=== PATIENT | female | born 1995 | race Caucasian/White ===

== ENCOUNTER 2016-04-12 17:53 | Emergency (ER) | payer OTHER ==
[~2016-04-12 17:53] MED LIST: MIRALAX
== END 2016-04-12 20:25 | disposition left against medical advice (07) ==
LOC: M ED 17:53
DX: M54.5 Low back pain (principal); Z53.29 Procedure and treatment not carried out because of patient's decision for other reasons

== ENCOUNTER 2016-06-27 09:12 | Emergency (ER) | payer OTHER ==
[~2016-06-27] VITALS: Ht 167.6 cm; Wt 89.8 kg
[2016-06-27] MEDS ORDERED: IBUP600T26 PO (09:20)
[2016-06-27] MEDS ORDERED: ZOLO100T PO (09:20)
[2016-06-27] MEDS ORDERED: ONDANSETRON 4MG/2ML VIAL (J2405) IV ONE (09:45)
[2016-06-27] MEDS ORDERED: ACETAMINOPHEN TAB 650MG DOSE (2X325MG) PO ONE (09:45)
[2016-06-27] MEDS ORDERED: NS 1,800 ML IV ONE (09:45)
[2016-06-27 10:03] LABS: BASO # 0.1 K/mm3 (0.0-0.2); BASO % 0.5 % (0.0-1.0); EOS # 0.1 K/mm3 (0.0-0.50); EOS % 0.4 % (0.0-3.0); LARGE UNSTAINED CELL # 0.2 K/mm3 (0.0-0.4); LYMPH % 6.1 % (24.0-44.0); MEAN CORPUSCULAR HGB CONC 34.7 g/dl (32.0-36.5); MEAN CORPUSCULAR VOLUME 92.4 fl (80.0-96.0); MONO # 0.5 K/mm3 (0.0-0.8); NEUTROPHILS # 14.4 K/mm3 (1.8-7.7); NEUTROPHILS % 89.1 % (36.0-66.0); PLATELET COUNT, AUTOMATED 279 k/mm3 (150-450); WHITE BLOOD COUNT 16.2 K/mm3 (4.0-10.0)
[2016-06-27 10:26] LABS: ANION GAP 8 MEQ/L (8-16); BLOOD UREA NITROGEN 7 MG/DL (7-18); CALCIUM LEVEL 8.9 MG/DL (8.5-10.1); CARBON DIOXIDE LEVEL 26 MEQ/L (21-32); CHLORIDE LEVEL 106 MEQ/L (98-107); GLUCOSE, FASTING 122 MG/DL (70-105); POTASSIUM SERUM 3.5 MEQ/L (3.5-5.1); SODIUM LEVEL 140 MEQ/L (136-145)
[2016-06-27 10:28] LABS: CONTROL LINE HCG INT CTR LINE PRESENT
[2016-06-27 12:38] VITALS: BP 117/65
[2016-06-27] MEDS ORDERED: TYLE325T5 PO (12:38)
[2016-06-27] MEDS ORDERED: MUCI600T34 PO (12:38)
== END 2016-06-27 12:48 | disposition home or self-care (01) ==
LOC: M ED 09:39
DX: J06.9 Acute upper respiratory infection, unspecified (principal); F41.9 Anxiety disorder, unspecified; F33.9 Major depressive disorder, recurrent, unspecified; Z79.899 Other long term (current) drug therapy
CPT/HCPCS: 80048; 84703; 85025; 87804; 87880; 96374; 99283; J2405

== ENCOUNTER → 2016-07-01 | Outpatient (CLI) | payer OTHER ==
[~2016-07-01] MED LIST changes: +IBUP600T26 PO; +MUCI600T34 PO; +TYLE325T5 PO; +ZOLO100T PO
[2016-07-01 09:11] LABS: BASO # 0.1 K/mm3 (0.0-0.2); BASO % 0.6 % (0.0-1.0); EOS # 0.2 K/mm3 (0.0-0.50); EOS % 2.1 % (0.0-3.0); LARGE UNSTAINED CELL # 0.3 K/mm3 (0.0-0.4); LARGE UNSTAINED CELL % 3.1 % (0.0-4.0); LYMPH # 2.2 K/mm3 (1.5-6.5); LYMPH % 24.6 % (24.0-44.0); MEAN CORPUSCULAR HEMOGLOBIN 32.8 pg (27.0-33.0); MEAN CORPUSCULAR HGB CONC 34.5 g/dl (32.0-36.5); MONO # 0.3 K/mm3 (0.0-0.8); MONO % 3.9 % (0.0-5.0); NEUTROPHILS # 5.9 K/mm3 (1.8-7.7); NEUTROPHILS % 65.8 % (36.0-66.0); PLATELET COUNT, AUTOMATED 422 k/mm3 (150-450); RED CELL DISTRIBUTION WIDTH 11.9 % (11.5-14.5); WHITE BLOOD COUNT 8.9 K/mm3 (4.0-10.0)
[2016-07-01 09:51] LABS: ALBUMIN 3.3 GM/DL (3.2-5.2); ALBUMIN/GLOBULIN RATIO 0.79 (1.00-1.93); ALKALINE PHOSPHATASE 46 U/L (45-117); ALT/SGPT 35 U/L (12-78); ANION GAP 11 MEQ/L (8-16); AST/SGOT 20 U/L (15-37); BILIRUBIN,TOTAL 0.4 MG/DL (0.2-1.0); BLOOD UREA NITROGEN 12 MG/DL (7-18); CARBON DIOXIDE LEVEL 29 MEQ/L (21-32); CHLORIDE LEVEL 101 MEQ/L (98-107); CREATININE FOR GFR 0.69 MG/DL (0.55-1.02); GLUCOSE, FASTING 95 MG/DL (70-105); POTASSIUM SERUM 3.5 MEQ/L (3.5-5.1); SODIUM LEVEL 141 MEQ/L (136-145); TOTAL PROTEIN 7.5 GM/DL (6.4-8.2)
--- NOTE | 2016-07-02 01:07 | REP ---
Clinical: Fever and chest pain. Technique: PA and lateral. Comparison: 07/02/2014. Findings: Atelectasis/infiltrate involving the basilar right upper lobe noted. Mediastinum and cardiac silhouette normal. No effusion. No pneumothorax. Skeletal structures intact. Impression: Basilar right upper lobe infiltrate/atelectasis. Follow-up to resolution. Signed by Fabricio Orr MD 07/02/2016 12:59 A
--- NOTE | 2016-07-02 03:20 | REP ---
Clinical: Secondary amenorrhea . Technique: Transabdominal pelvic ultrasound followed by transvaginal examination for better evaluation of the endometrium and adnexa with color Doppler evaluation of the ovaries. Findings: Bladder is unremarkable and measures 5.1 x 2.7 x 3.7 cm . Normal anteverted uterus measures 6.6 x 3.0 x 4.4 cm . The endometrial complex measures 7.0 mm thickness. No discrete uterine or endometrial abnormalities are appreciated. Few subcentimeter Nabothian cysts in the lower uterine segment. Bilateral ovaries are normal in appearance and vascularity without evidence for torsion. Right ovary measures 5.0 x 1.8 x 2.7 cm ; R I = 0.66 . Left ovary measures 4.1 x 2.2 x 3.4 cm ; R I = 0.60 . No pelvic fluid or adnexal mass lesion. Impression: 1. Essentially normal pelvic ultrasound as described above. Few subcentimeter Nabothian cysts in the lower uterine segment/cervical region. 2. Normal bilateral ovaries without torsion. 3. No pelvic fluid or adnexal mass lesion. Signed by Fabricio Orr MD 07/02/2016 03:11 A
== END ==
LOC: M LAB 08:19
PROVIDERS: ATTEND Nurse Practitioner Family
DX: N91.1 Secondary amenorrhea (principal); Z72.51 High risk heterosexual behavior; R50.9 Fever, unspecified

== ENCOUNTER → 2016-07-30 | Outpatient (CLI) | payer OTHER ==
[2016-07-30 16:23] LABS: FOLLICLE STIMULATING HORMONE 9.3 mIU/mL
== END ==
LOC: M LAB 15:21
PROVIDERS: ATTEND Internal Medicine Endocrinology, Diabetes & Metabolism
DX: E28.2 Polycystic ovarian syndrome (principal)

== ENCOUNTER → 2017-03-21 | Outpatient (REF) | payer OTHER ==
[2017-03-21 22:16] LABS: APPEARANCE, URINE CLEAR (CLEAR); BACTERIA, URINE AUTO NEGATIVE (NEGATIVE); BILIRUBIN, URINE AUTO NEGATIVE (NEGATIVE); BLOOD, URINE BLOOD 1+ (NEGATIVE); COLOR, URINE YELLOW (YELLOW); GLUCOSE, URINE (UA) AUTO NEGATIVE (NEGATIVE); KETONE, URINE AUTO NEGATIVE (NEGATIVE); LEUKOCYTE ESTERASE, URINE AUTO 1+ (NEGATIVE); MUCUS, URINE SMALL (NEGATIVE); NITRITE, URINE AUTO NEGATIVE (NEGATIVE); PROTEIN, URINE AUTO NEGATIVE (NEGATIVE); RBC, URINE AUTO 0 /HPF (0-3); SPECIFIC GRAVITY URINE AUTO 1.018 (1.002-1.035); SQUAMOUS EPITHELIAL CELL UR AU 2 /HPF (0-6); UROBILINOGEN, URINE AUTO 0.2 mg/dL (0.0-2.0); WBC, URINE AUTO 0 /HPF (0-3)
== END ==
LOC: M LAB REF 10:25
DX: R10.9 Unspecified abdominal pain (principal)

== ENCOUNTER → 2017-06-19 | Outpatient (REF) | payer OTHER | LOC: M LAB REF 12:45 | DX: J02.9 Acute pharyngitis, unspecified (principal) ==

== ENCOUNTER 2017-11-04 19:56 | Emergency (ER) | payer OTHER ==
[2017-11-04] MEDS: CYCLOBENZAPRINE 10 MG TAB PO (22:45)
[2017-11-04] MEDS: NAPROXEN 250 MG TAB PO (22:49)
== END 2017-11-04 22:57 | disposition home or self-care (01) ==
LOC: M ED 19:56
DX: S39.012A Strain of muscle, fascia and tendon of lower back, initial encounter (principal); M62.830 Muscle spasm of back; X50.1XXA Overexertion from prolonged static or awkward postures, initial encounter; Y92.89 Other specified places as the place of occurrence of the external cause; M54.9 Dorsalgia, unspecified; G89.29 Other chronic pain
CPT/HCPCS: 99283

== ENCOUNTER 2017-12-21 12:19 | Emergency (ER) | payer OTHER ==
[2017-12-21 13:36] LABS: KETONE, URINE AUTO RFX TRACE mg/dL (NEGATIVE); MUCUS, URINE RFX SMALL (NEGATIVE); NITRITE, URINE AUTO RFX NEGATIVE (NEGATIVE); RBC, URINE AUTO RFX 1 /HPF (0-3); SPECIFIC GRAVITY UR AUTO RFX 1.028 (1.002-1.035); SQUAM EPITHELIAL CELL UR AURFX 2 /HPF (0-6); WBC, URINE AUTO RFX 1 /HPF (0-3)
[2017-12-21 13:37] LABS: LEUKOCYTE ESTERASE UR AUTO RFX 1+ (NEGATIVE)
[2017-12-21] MEDS: NS 1,000 ML IV (15:55)
[2017-12-21] MEDS: ACETAMINOPHEN TAB 650MG DOSE (2X325MG) PO (15:57)
[2017-12-21 16:02] LABS: BASO # 0.1 10^3/uL (0.0-0.2); BASO % 0.4 % (0.0-1.0); EOS % 0.2 % (0.0-3.0); HEMATOCRIT 39.7 % (36.0-47.0); HEMOGLOBIN 14.4 g/dl (12.0-15.5); IMMATURE GRANULOCYTE % 0.5 % (0-3.0); LYMPH # 2.6 10^3/uL (1.5-6.5); LYMPH % 15.4 % (24.0-44.0); MEAN CORPUSCULAR HEMOGLOBIN 33.4 pg (27.0-33.0); MEAN CORPUSCULAR HGB CONC 36.3 g/dl (32.0-36.5); MEAN CORPUSCULAR VOLUME 92.1 fl (80.0-96.0); MONO # 0.7 10^3/uL (0.0-0.8); MONO % 4.3 % (0.0-5.0); NEUTROPHILS # 13.3 10^3/uL (1.8-7.7); NEUTROPHILS % 79.2 % (36.0-66.0); PLATELET COUNT, AUTOMATED 361 10^3/uL (150-450); RED BLOOD COUNT 4.31 10^6/uL (4.00-5.40); RED CELL DISTRIBUTION WIDTH 12.2 % (11.5-14.5); WHITE BLOOD COUNT 16.8 10^3/uL (4.0-10.0)
[2017-12-21 16:57] LABS: HCG, SERUM QUANTITATIVE 52826 MIU/ML
== END 2017-12-21 17:28 | disposition home or self-care (01) ==
LOC: M ED 12:19
DX: O23.11 Infections of bladder in pregnancy, first trimester (principal); O99.341 Other mental disorders complicating pregnancy, first trimester; Z3A.01 Less than 8 weeks gestation of pregnancy
CPT/HCPCS: 76801

== ENCOUNTER → 2018-01-26 | Outpatient (CLI) | payer OTHER ==
[2018-01-26 18:16] LABS: GLUCOSE CHALLENGE TEST 1 HOUR 88 MG/DL (LESS THAN 140)
[2018-01-26 18:20] LABS: BASO # 0.1 10^3/uL (0.0-0.2); BASO % 0.4 % (0.0-1.0); EOS # 0.2 10^3/uL (0.0-0.50); EOS % 1.5 % (0.0-3.0); HEMATOCRIT 36.9 % (36.0-47.0); HEMOGLOBIN 12.7 g/dl (12.0-15.5); IMMATURE GRANULOCYTE % 0.4 % (0-3.0); LYMPH # 2.4 10^3/uL (1.5-6.5); LYMPH % 17.7 % (24.0-44.0); MEAN CORPUSCULAR HEMOGLOBIN 32.6 pg (27.0-33.0); MEAN CORPUSCULAR HGB CONC 34.4 g/dl (32.0-36.5); MEAN CORPUSCULAR VOLUME 94.9 fl (80.0-96.0); MONO # 0.7 10^3/uL (0.0-0.8); MONO % 4.7 % (0.0-5.0); NEUTROPHILS # 10.4 10^3/uL (1.8-7.7); NEUTROPHILS % 75.3 % (36.0-66.0); PLATELET COUNT, AUTOMATED 339 10^3/uL (150-450); RED BLOOD COUNT 3.89 10^6/uL (4.00-5.40); WHITE BLOOD COUNT 13.8 10^3/uL (4.0-10.0)
[2018-01-26 18:47] LABS: ESTIMATED AVERAGE GLUCOSE 82 MG/DL (60-110); HEMOGLOBIN A1c 4.5 %
[2018-01-26 20:10] LABS: CHLAMYDIA DNA AMPLIFICATION NEGATIVE (NEGATIVE); GC DNA AMPLIFICATION NEGATIVE (NEGATIVE)
[2018-01-27 11:01] LABS: RUBELLA IgG QUALITATIVE IMMUNE (IMMUNE)
[2018-01-27 11:02] LABS: HBsAg Prenatal NEGATIVE (NEGATIVE)
[2018-01-27 11:30] LABS: HIV 1&2 SCREEN CENTAUR NEGATIVE (NEGATIVE)
[2018-01-27 11:30] LABS: HEPATITIS C VIRUS ABY INDEX 0.1 INDEX (<0.8)
== END ==
LOC: M SMT 13:46
DX: Z34.81 Encounter for supervision of other normal pregnancy, first trimester (principal); Z3A.12 12 weeks gestation of pregnancy
CPT/HCPCS: 82950

== ENCOUNTER → 2018-03-10 | Outpatient (CLI) | payer MEDICAID, SELFPAY ==
[~2018-03-10] MED LIST changes: +BACT800T5 PO; +CIPR-249 PO; +CYCL10TA PO; +IBUP-1022 PO; -IBUP600T26 PO; +MACR100C43 PO; -MUCI600T34 PO; +MUCI600T37 PO; +NAPR-50 PO; +PERCOCET PO; +PYRI1TAB5 PO
--- NOTE | 2018-03-10 09:31 | REP ---
OBSTETRIC SONOGRAPHY: HISTORY: Supervision of for anatomy. FINDINGS: Scanning through the gravid uterus demonstrates a viable single intrauterine gestation in a cephalic lie. motion is observed and heart rate is recorded at 144 beats per minute. An anterior grade 0 placenta is seen without evidence of previa or abruption. Amniotic fluid is subjectively normal. Closed cervical length is 4.3 cm. No extrauterine abnormality is observed. There has been appropriate interval growth. No anomaly is seen. The following anatomic structures are less than optimally seen due to position: face and profile, left and right ventricular cardiac outflow tract views. The following additional anatomic structures are identified and felt to be sonographically unremarkable: cranium, choroid plexus, cavum, cerebellum posterior fossa, nuchal fold, lungs, four-chamber heart, diaphragm, left-sided stomach, abdominal wall cord insertion, three-vessel umbilical cord, kidneys and bladder, spine, upper and lower extremities. Biometry Chart: BPD 4.0 cm = 18 weeks 1 day HC 14.6 cm = 17 weeks 5 days AC 12.0 cm = 17 weeks 5 days FL 2.6 cm = 17 weeks 6 days HL 2.6 cm = 18 weeks 2 days CD 1.7 cm = 17 weeks 1 day HC/AC ratio normal 1.22. Cephalic index normal 0.77. Estimated weight 210 grams, 0 pounds 7 ounces, 22nd percentile for 18 weeks 3 days. IMPRESSION: Viable single intrauterine gestation at 17 weeks 6 days by today's composite sonographic criteria. Expected gestational age estimate based on prior sonography is 18 weeks 3 days. SADI by prior sonography August 08, 2018. The left and right ventricular outflow tract views and face visualization are less than optimally achieved today. Electronically Signed by Joshua Ruff MD 03/10/2018 10:21 A
== END ==
LOC: M RAD 07:43
PROVIDERS: ATTEND Advanced Practice Midwife
DX: Z36.89 Encounter for other specified antenatal screening (principal); Z3A.17 17 weeks gestation of pregnancy

== ENCOUNTER → 2018-04-03 | Outpatient (CLI) | payer MEDICAID ==
--- NOTE | 2018-04-03 15:08 | REP ---
OB ULTRASOUND: Real-time sonographic evaluation of the gravid uterus is performed. There is a single living intrauterine gestation. Estimated gestational age 21 weeks 6 days, EDC 08/08/2018. Today's measurements indicate appropriate growth. BPD 50 mm = 21 weeks 1 day, 29th percentile HC 186 mm = 21 weeks 0 days, 20th percentile AC 175 mm = 22 weeks 2 days, 61st percentile Femur length 39 mm = 22 weeks 4 days, 65th percentile HC/AC ratio 1.06 within normal range. Estimated weight 489 grams, 57th percentile. Cervix is closed and measures 2.9 cm in length. heart rate 147 beats per minute. SEEN/GROSSLY UNREMARKABLE Lateral ventricles Yes Posterior fossa Yes Upper lip Yes Four-chamber heart Yes LVOT Yes RVOT Yes Stomach Yes Cord insertion Yes Three vessel cord Yes Kidneys No Bladder Yes Spine No position: Breech. Placenta: Anterior and grade 1 with no previa or abruption. Amniotic fluid: Within normal limits. Electronically Signed by Kristofer Saldana MD 04/03/2018 07:58 P
== END ==
LOC: M RAD 10:25
PROVIDERS: ATTEND Advanced Practice Midwife
DX: Z34.82 Encounter for supervision of other normal pregnancy, second trimester (principal)

== ENCOUNTER 2018-04-06 10:05 | Emergency (ER) | payer MEDICAID, OTHER ==
[~2018-04-06] VITALS: Ht 165.1 cm; Wt 94.5 kg
[2018-04-06] MEDS ORDERED: ACET160S5 PO (10:12)
[2018-04-06] MEDS ORDERED: [UNRECOGNIZED DRUG - REMARK] (10:12)
[2018-04-06] MEDS ORDERED: METOCLOPRAMIDE INJ 10MG/2ML VIAL (J2765) IV ONE (11:45)
[2018-04-06] MEDS ORDERED: NS 1,000 ML IV ONE (11:45)
[2018-04-06 12:04] LABS: BASO # 0.1 10^3/uL (0.0-0.2); BASO % 0.4 % (0.0-1.0); EOS # 0.1 10^3/uL (0.0-0.50); EOS % 0.5 % (0.0-3.0); HEMATOCRIT 34.6 % (36.0-47.0); HEMOGLOBIN 12.1 g/dl (12.0-15.5); LYMPH # 2.3 10^3/uL (1.5-6.5); MEAN CORPUSCULAR HEMOGLOBIN 32.9 pg (27.0-33.0); MONO # 0.6 10^3/uL (0.0-0.8); MONO % 3.5 % (0.0-5.0); NEUTROPHILS # 14.2 10^3/uL (1.8-7.7); NEUTROPHILS % 81.8 % (36.0-66.0); PLATELET COUNT, AUTOMATED 310 10^3/uL (150-450); RED BLOOD COUNT 3.68 10^6/uL (4.00-5.40); WHITE BLOOD COUNT 17.3 10^3/uL (4.0-10.0)
[2018-04-06] MEDS ORDERED: FIORICET TAB PO ONE (12:15)
[2018-04-06 12:34] LABS: BLOOD UREA NITROGEN 6 MG/DL (7-18); CARBON DIOXIDE LEVEL 23 MEQ/L (21-32); CHLORIDE LEVEL 106 MEQ/L (98-107); CREATININE FOR GFR 0.53 MG/DL (0.55-1.30); GLOMERULAR FILTRATION RATE > 60.0 (>60); GLUCOSE, FASTING 92 MG/DL (70-100); POTASSIUM SERUM 3.6 MEQ/L (3.5-5.1); SODIUM LEVEL 137 MEQ/L (136-145)
[2018-04-06] MEDS ORDERED: ONDA4TAB6 PO (13:46)
[2018-04-06 14:08] VITALS: BP 122/57
== END 2018-04-06 14:09 | disposition home or self-care (01) ==
LOC: M ED 10:05
DX: O99.89 Other specified diseases and conditions complicating pregnancy, childbirth and the puerperium (principal); R51 Headache; O99.112 Other diseases of the blood and blood-forming organs and certain disorders involving the immune mechanism complicating pregnancy, second trimester
CPT/HCPCS: 80048; 81001; 85025; 96361; 96374; 99284; J2765

== ENCOUNTER 2018-04-11 17:01 | Emergency (ER) | payer MEDICAID ==
[~2018-04-11] VITALS: Ht 165.1 cm; Wt 92.7 kg
[~2018-04-11 17:01] MED LIST changes: +ACET160S5 PO; +ONDA4TAB6 PO; +[UNRECOGNIZED DRUG - REMARK]
[2018-04-11] MEDS ORDERED: ONDANSETRON 4 MG ORAL DISINTEGRATING TAB (Q0162 PER 1MG) PO ONE (18:30)
[2018-04-11 19:02] LABS: INFLUENZA A AMPLIFICATION NEGATIVE (NEGATIVE); INFLUENZA B AMPLIFICATION NEGATIVE (NEGATIVE)
[2018-04-11] MEDS ORDERED: METOCLOPRAMIDE 10 MG TAB PO ONE ×2 (19:15→20:15)
[2018-04-11 20:06] VITALS: BP 130/67
[2018-04-11] MEDS ORDERED: REGL10TA6 PO (20:06)
== END 2018-04-11 20:14 | disposition home or self-care (01) ==
LOC: M ED 17:01
DX: R05 Cough (principal); R09.81 Nasal congestion; O21.9 Vomiting of pregnancy, unspecified
CPT/HCPCS: 87502; 99283; Q0162

== ENCOUNTER → 2018-05-19 | Outpatient (CLI) | payer MEDICAID ==
[~2018-05-19] MED LIST changes: +REGL10TA6 PO
[2018-05-19 18:41] LABS: HEMATOCRIT 34.4 % (36.0-47.0); HEMOGLOBIN 11.4 g/dl (12.0-15.5); MEAN CORPUSCULAR HGB CONC 33.1 g/dl (32.0-36.5); MEAN CORPUSCULAR VOLUME 96.6 fl (80.0-96.0); PLATELET COUNT, AUTOMATED 333 10^3/uL (150-450); RED BLOOD COUNT 3.56 10^6/uL (4.00-5.40); WHITE BLOOD COUNT 15.7 10^3/uL (4.0-10.0)
== END ==
LOC: M SMT 13:51
PROVIDERS: ATTEND Advanced Practice Midwife
DX: O99.89 Other specified diseases and conditions complicating pregnancy, childbirth and the puerperium (principal); Z3A.24 24 weeks gestation of pregnancy

== ENCOUNTER → 2018-07-14 | Outpatient (CLI) | payer MEDICAID ==
[~2018-07-14] MED LIST changes: -ACET160S5 PO; -NAPR-50 PO; +NAPR-837 PO; +TGTSUS3 PO
== END ==
LOC: M SMT 13:45
PROVIDERS: ATTEND Advanced Practice Midwife
DX: Z36.89 Encounter for other specified antenatal screening (principal)

== ENCOUNTER → 2018-07-14 | Outpatient (REF) | payer OTHER, MEDICAID | LOC: M LAB REF 17:20 | PROVIDERS: ATTEND Advanced Practice Midwife | DX: Z34.03 Encounter for supervision of normal first pregnancy, third trimester (principal); Z3A.00 Weeks of gestation of pregnancy not specified ==

== ENCOUNTER 2018-07-27 01:12 | Outpatient (CLI) | payer OTHER, MEDICAID ==
[~2018-07-27] VITALS: Ht 167.6 cm; Wt 105.6 kg
[2018-07-27 01:29] VITALS: BP 130/76
[2018-07-27] MEDS ORDERED: PRENTAB9 PO (01:36)
[2018-07-27 03:01] VITALS: BP 129/75
--- NOTE | 2018-07-27 16:27 | NUR ---
L&D Triage Note: S: 22yo g1 at 38w2d presents with c/o crease movement. Denies vaginal bleeding, LOF or ctx. O: vss AF cat 1 tracing with prolong monitoring. 2-3 variable decelerations. positive contractions on tocometer gen: well appearing abd: gravid, nttp cx: closed TAUS: ceph, active fetus, DANIELA: >16cm A/P: 22yo G1 at 38w2d with reassuring status -home with labor precautions and FKCs instructions -f/u at next OB appt Katherine Matos MD
== END 2018-07-27 03:00 | disposition home or self-care (01) ==
LOC: M LDO 01:12
PROVIDERS: ATTEND Obstetrics & Gynecology
DX: O36.8130 Decreased fetal movements, third trimester, not applicable or unspecified (principal); O47.1 False labor at or after 37 completed weeks of gestation; Z3A.38 38 weeks gestation of pregnancy

== ENCOUNTER 2018-08-11 03:00 | Inpatient (IN) | payer OTHER, MEDICAID ==
[2018-08-11] VITALS (7 sets, daily range): BP systolic 120–148; BP diastolic 56–80
[~2018-08-11] VITALS: Ht 167.6 cm; Wt 110.3 kg
[~2018-08-11 03:00] MED LIST changes: +PRENTAB9 PO
[2018-08-11 04:16] LABS: HEMATOCRIT 36.8 % (36.0-47.0); HEMOGLOBIN 12.9 g/dl (12.0-15.5); MEAN CORPUSCULAR HEMOGLOBIN 33.2 pg (27.0-33.0); MEAN CORPUSCULAR HGB CONC 35.1 g/dl (32.0-36.5); MEAN CORPUSCULAR VOLUME 94.6 fl (80.0-96.0); PLATELET COUNT, AUTOMATED 321 10^3/uL (150-450); RED BLOOD COUNT 3.89 10^6/uL (4.00-5.40); WHITE BLOOD COUNT 20.2 10^3/uL (4.0-10.0)
[2018-08-11] MEDS ORDERED: FENTANYL 2MCG/ML ROPIVACAINE 0.2% IN 0.9% NACL 100ML IVBAG As Ordered ONE (05:02)
[2018-08-11] MEDS ORDERED: OXYTOCIN 30 UNITS IN 0.9% NaCl 500ML IV BAG (J2590) As Ordered ONE (05:32)
[2018-08-11] MEDS ORDERED: OXYTOCIN DRIP 30 UNITS in APPROPRIATE DILUENT 1 EA IV SCH (06:53)
[2018-08-11] MEDS ORDERED: MOM 30ML SUSPENSION UDC PO PRN (07:00)
[2018-08-11] MEDS ORDERED: LIDOCAINE 1% MDV 20ML VIAL INFIL ONE (07:00)
[2018-08-11] MEDS ORDERED: ANUSOL HC CREAM 30GM TOP PRN (07:00)
[2018-08-11] MEDS ORDERED: RHOGAM 300 MCG (1500 IU) INJ (J2790) IM SCH (07:00)
[2018-08-11] MEDS ORDERED: ACETAMINOPHEN TAB 650MG DOSE (2X325MG) PO PRN (07:00)
[2018-08-11] MEDS ORDERED: DOCUSATE SODIUM 100 MG CAP PO PRN (07:00)
[2018-08-11] MEDS ORDERED: METHYLERGONOVINE MALEATE 0.2 MG TAB PO PRN (07:00)
[2018-08-11] MEDS ORDERED: DIBUCAINE 1% OINTMENT 30GM TOP PRN (07:00)
[2018-08-11] MEDS ORDERED: ACETAMINOPHEN 500 MG TAB PO PRN (07:00)
[2018-08-11] MEDS ORDERED: IBUPROFEN 600 MG TAB PO PRN (07:00)
[2018-08-11] MEDS ORDERED: MEASLES,MUMPS,RUBELLA VACCINE INJ (MMR-II) (90707) SC SCH (07:00)
--- NOTE | 2018-08-11 07:11 | DN ---
DATE OF DELIVERY: 08/11/2018 TIME OF : 0553 GENDER: Male. APGARS: 8 and 9. WEIGHT: 6 pounds 11 ounces or 3000 grams. LACERATION: Right labial laceration. ESTIMATED BLOOD LOSS: 300 mL. ANESTHESIA: None. COUNTS: 5 laparotomy sponges accounted for prior to and after delivery, 2 sharps removed from delivery field. DELIVERY NOTE: 08/11/2018, at 0553, Ms. Louise, a 23-year-old, 1, now para 1 had a spontaneous vaginal delivery of a live born male infant, Apgars 8 and 9, weight 6 pounds 11 ounces or 3000 grams. Head was delivered occiput anterior (OA) over intact perineum followed by delivery of shoulders and corpus. was handed to mom with a good cry. Cord was then clamped times two and was cut by the father of the baby. The placenta was then drained and delivered grossly intact. A premixed bag of 500 mL of normal saline with 30 units Pitocin was then bolused until the uterus was firm. On inspection, there was a right labial laceration which was infused with 1% lidocaine and then repaired with #3-0 Vicryl Rapide. On reinspection, cervix, vagina and perineum were grossly intact and hemostatic. Mom and baby recovering in stable condition. The couple has decided to name their son, Lawrence.
--- NOTE | 2018-08-11 07:12 | HPE ---
DATE OF ADMISSION: 08/11/2018 REASON FOR ADMISSION: Labor. HISTORY OF PRESENT ILLNESS: Ms Louise is a 23-year-old, 1 who presents at 40 weeks 3 days estimated gestational age by her first trimester ultrasound here with complaints of labor. She reports contractions that began earlier this morning that have increased in intensity and frequency. She reports active movements. Does report leakage of fluid, which was clear approximately at 3:30. Denies any vaginal bleeding. Her course is unremarkable. She initiated care in her first trimester and has been appropriate throughout. PAST MEDICAL HISTORY: None. PAST SURGICAL HISTORY: She has had appendectomy and hernia repair. OBSTETRICAL HISTORY: She is a 1. MEDICATIONS: Includes vitamins. ALLERGIES: She has no known drug allergies. PHYSICAL EXAMINATION: VITAL SIGNS: Stable. She is afebrile. She has a category 1 rate tracing. GENERAL APPEARANCE: Well appearing, no acute distress. The cervical exam: She was 4 cm dilated, grossly ruptured. LABS: Her blood type is O+, antibody screen is negative. Rubella is immune. RPR is nonreactive. Hepatitis surface antigen is negative. HIV is negative. Hepatitis C is nonreactive. Chlamydia, gonorrhea screens negative. She had a normal 1-hour Glucola and she is GBS negative. ASSESSMENT: 1. This patient is a 23-year-old 1 at 40 weeks 3 days estimated gestational age with spontaneous rupture of membranes. 2. Reassuring status. PLAN: 1. Admit to labor and delivery. CBC, RPR, type and screen. 2. Anticipate spontaneous vaginal delivery.
[2018-08-11] MEDS: PRENATAL VITAMINS CHEWABLE TABLET PO SCH (11:19)
[2018-08-12 06:00] VITALS: BP 132/65
[2018-08-12] MEDS: PRENATAL VITAMINS CHEWABLE TABLET PO SCH (07:36)
[2018-08-12] MEDS: IBUPROFEN 800 MG TAB PO PRN ×2 (07:37→18:01)
[2018-08-12 18:07] VITALS: BP 131/65
[2018-08-13 06:00] VITALS: BP 128/72
[2018-08-13] MEDS: PRENATAL VITAMINS CHEWABLE TABLET PO SCH (08:05)
[2018-08-13] MEDS: IBUPROFEN 800 MG TAB PO PRN (08:06)
[2018-08-13] MEDS ORDERED: ACET-683 PO (08:59)
[2018-08-13] MEDS ORDERED: IBUP80TA PO (08:59)
== END 2018-08-13 11:00 | disposition home or self-care (01) | DRG 560 ==
LOC: M LDO 03:00 → M LDI 03:31 → M OBS 08:46
PROVIDERS: ADMIT Obstetrics & Gynecology; ATTEND Obstetrics & Gynecology
PROC: 10E0XZZ Delivery of Products of Conception, External Approach (ICD-10-PCS; principal; 2018-08-11)
PROC: 0HQ9XZZ Repair Perineum Skin, External Approach (ICD-10-PCS; 2018-08-11)
DX: O48.0 Post-term pregnancy (principal); O70.0 First degree perineal laceration during delivery; Z3A.40 40 weeks gestation of pregnancy; Z37.0 Single live birth

== ENCOUNTER → 2018-10-26 | Outpatient (CLI) | payer OTHER, MEDICAID ==
[~2018-10-26] MED LIST changes: +ACET-683 PO; +IBUP80TA PO
[2018-10-26 17:18] LABS: FREE T4 0.96 NG/DL (0.76-1.46); THYROID STIMULATING HORMONE 0.638 uIU/ML (0.358-3.740); TOTAL 25(OH) VITAMIN D 22.5 NG/ML (30.0-100.0)
== END ==
LOC: M SMT 11:25
PROVIDERS: ATTEND Advanced Practice Midwife
DX: F53.0 Postpartum depression (principal)

== ENCOUNTER → 2019-01-10 | Outpatient (CLI) | payer OTHER | LOC: M SMT 10:08 | PROVIDERS: ATTEND Obstetrics & Gynecology | DX: Z12.4 Encounter for screening for malignant neoplasm of cervix (principal); B37.3 Candidiasis of vulva and vagina ==

== ENCOUNTER → 2020-12-22 | Outpatient (CLI) | payer OTHER ==
[~2020-12-22] MED LIST changes: +ACET-1439 PO; +CYCL-707 PO; -CYCL10TA PO; -TGTSUS3 PO
--- NOTE | 2020-12-23 09:35 | REP ---
INDICATION: GESTATIONAL DATING. COMPARISON: None. TECHNIQUE: Real-time sonographic evaluation of the gravid uterus performed. FINDINGS: Estimated gestational age is20 weeks 1 day, EDC 05/10/2021. Today's measurements indicate appropriate growth. Presentation: Transverse Placenta anterior, grade 0, without evidence of placenta previa. heart rate is recorded at 135 beats per minute. Amniotic fluid is subjectively normal. Closed cervical length is measured at 3.7 cm. Biometry chart: BPD: 46 mm, 20 weeks 0 days, 47th percentile. HC: 174 mm, 20 weeks 0 days, 45th percentile AC: 145 mm, 19 weeks 6 days, 44th percentile Femur length: 33 mm, 20 weeks 3 days, 59th percentile HC to AC ratio: 1.20, normal range 1.06-1.24. Estimated weight: 332g, 44th percentile. anatomy: Cranium: Grossly normal Lateral Ventricles/Choroid Plexus: Grossly normal Posterior Fossa/Cerebellum: Grossly normal Nose/lips/profile: Not well seen due to position Four chamber heart: Grossly normal Right ventricular outflow tract: Grossly normal Left ventricular outflow tract: Grossly normal Left-sided stomach: Grossly normal Kidneys: Not well seen due to position Bladder: Grossly normal Cord Insertion: Grossly normal 3 vessel cord: Grossly normal Spine: Well seen due to position IMPRESSION: Viable single intrauterine gestation as above. <Electronically signed by Kristofer Saldana > 12/23/20 0914
== END ==
LOC: M RAD 15:28
PROVIDERS: ATTEND Physician Assistant Medical
DX: Z36.87 Encounter for antenatal screening for uncertain dates (principal); Z32.01 Encounter for pregnancy test, result positive; Z3A.20 20 weeks gestation of pregnancy

== ENCOUNTER → 2021-01-05 | Outpatient (REF) | payer OTHER ==
[2021-01-05 12:16] LABS: HEMATOCRIT 34.2 % (36.0-47.0); HEMOGLOBIN 11.9 g/dl (12.0-15.5); MEAN CORPUSCULAR HEMOGLOBIN 32.7 pg (27.0-33.0); MEAN CORPUSCULAR HGB CONC 34.8 g/dl (32.0-36.5); PLATELET COUNT, AUTOMATED 307 10^3/uL (150-450); RED BLOOD COUNT 3.64 10^6/uL (4.00-5.40)
[2021-01-05 13:30] LABS: HCG, SERUM QUANTITATIVE 3108 MIU/ML; HEPATITIS B SURFACE ANTIGEN NEGATIVE (NEGATIVE); HEPATITIS C VIRUS ABY INDEX 0.1 INDEX (<0.8); HIV 1&2 SCREEN CENTAUR NEGATIVE (NEGATIVE)
== END ==
LOC: M LAB REF 11:30
PROVIDERS: ATTEND Advanced Practice Midwife
DX: Z34.81 Encounter for supervision of other normal pregnancy, first trimester (principal); Z3A.00 Weeks of gestation of pregnancy not specified

== ENCOUNTER → 2021-01-26 | Outpatient (CLI) | payer OTHER | LOC: M RAD 11:48 | PROVIDERS: ATTEND Advanced Practice Midwife | DX: Z36.9 Encounter for antenatal screening, unspecified (principal); Z3A.25 25 weeks gestation of pregnancy ==

== ENCOUNTER → 2021-02-16 | Outpatient (CLI) | payer OTHER ==
[2021-02-16 12:21] LABS: BASO # 0.1 10^3/uL (0.0-0.2); BASO % 0.4 % (0.0-1.0); EOS # 0.2 10^3/uL (0.0-0.5); EOS % 1.3 % (0.0-3.0); HEMATOCRIT 34.6 % (36.0-47.0); HEMOGLOBIN 11.9 g/dl (12.0-15.5); LYMPH # 2.3 10^3/uL (1.5-5.0); LYMPH % 16.4 % (24.0-44.0); MEAN CORPUSCULAR HGB CONC 34.4 g/dl (32.0-36.5); MEAN CORPUSCULAR VOLUME 95.8 fl (80.0-96.0); MONO # 0.6 10^3/uL (0.0-0.8); MONO % 4.2 % (2.0-8.0); NEUTROPHILS # 10.9 10^3/uL (1.5-8.5); NEUTROPHILS % 77.1 % (36.0-66.0); PLATELET COUNT, AUTOMATED 278 10^3/uL (150-450); RED BLOOD COUNT 3.61 10^6/uL (4.00-5.40); WHITE BLOOD COUNT 14.2 10^3/uL (4.0-10.0)
== END ==
LOC: M LAB 10:11
PROVIDERS: ATTEND Advanced Practice Midwife
DX: Z36.89 Encounter for other specified antenatal screening (principal); Z3A.00 Weeks of gestation of pregnancy not specified

== ENCOUNTER → 2021-03-17 | Outpatient (REF) | payer OTHER ==
[2021-03-17 13:42] LABS: TOTAL PROTEIN,RANDOM URINE 28.4 MG/DL (0.0-12.0)
== END ==
LOC: M LAB REF 12:20
PROVIDERS: ATTEND Advanced Practice Midwife
DX: Z36.9 Encounter for antenatal screening, unspecified (principal); O12.13 Gestational proteinuria, third trimester

== ENCOUNTER → 2021-04-14 | Outpatient (REF) | payer OTHER | LOC: M LAB REF 16:29 | PROVIDERS: ATTEND Obstetrics & Gynecology | DX: Z36.9 Encounter for antenatal screening, unspecified (principal); Z3A.00 Weeks of gestation of pregnancy not specified ==

== ENCOUNTER 2021-05-09 23:21 | Inpatient (IN) | payer OTHER ==
[~2021-05-09] VITALS: Ht 167.6 cm; Wt 105.0 kg
[2021-05-09] MEDS ORDERED: RHOGAM 300 MCG (1500 IU) INJ (J2790) IM SCH (23:45)
[2021-05-09] MEDS ORDERED: HOME MED LIST COMPLETE! XX SCH (23:45)
[2021-05-09] MEDS ORDERED: TRANEXAMIC ACID INJection 1,000 MG in NS 100 ML IV PRN (23:45)
[2021-05-09] MEDS ORDERED: METHYLERGONOVINE MALEATE 0.2 MG/ML VIAL (J2210) IM PRN (23:45)
[2021-05-09] MEDS ORDERED: ACETAMINOPHEN TAB 650MG DOSE (2X325MG) PO PRN (23:45)
[2021-05-09] MEDS ORDERED: METHYLERGONOVINE MALEATE 0.2 MG TAB PO PRN (23:45)
[2021-05-09] MEDS ORDERED: IBUPROFEN 600MG TAB PO PRN (23:45)
[2021-05-09] MEDS ORDERED: MEASLES,MUMPS,RUBELLA VACCINE INJ (MMR-II) (90707) SC SCH (23:45)
[2021-05-09] MEDS ORDERED: OXYTOCIN INJ 10 UNITS/ML VIAL (J2590) IM PRN (23:45)
[2021-05-09] MEDS ORDERED: CARBOPROST TROMETHAMINE 250 MCG/ML AMP IM PRN (23:45)
[2021-05-09] MEDS ORDERED: ACETAMINOPHEN 500 MG TAB PO PRN (23:45)
[2021-05-09] MEDS ORDERED: DOCUSATE SODIUM 100MG CAPSULE PO PRN (23:45)
[2021-05-09] MEDS ORDERED: DIBUCAINE 1% OINTMENT 30GM TOP PRN (23:45)
[2021-05-09] MEDS ORDERED: IBUPROFEN 800 MG TAB PO PRN (23:45)
[2021-05-09] MEDS ORDERED: OXYTOCIN INJ 10 UNITS/ML VIAL (J2590) As Ordered ONE (23:52)
[2021-05-10] VITALS (12 sets, daily range): BP systolic 110–148; BP diastolic 58–90
[2021-05-10] MEDS ORDERED: OXYTOCIN 30 UNITS IN 0.9% NaCl 500ML IV BAG (J2590) As Ordered ONE (00:07)
[2021-05-10] MEDS ORDERED: OXYTOCIN DRIP 30 UNITS in IV 1 EA IV STA (00:11)
[2021-05-10 00:29] LABS: HEMATOCRIT 36.8 % (36.0-47.0); HEMOGLOBIN 13.1 g/dl (12.0-15.5); MEAN CORPUSCULAR HEMOGLOBIN 32.5 pg (27.0-33.0); MEAN CORPUSCULAR HGB CONC 35.6 g/dl (32.0-36.5); MEAN CORPUSCULAR VOLUME 91.3 fl (80.0-96.0); PLATELET COUNT, AUTOMATED 319 10^3/uL (150-450); RED BLOOD COUNT 4.03 10^6/uL (4.00-5.40); WHITE BLOOD COUNT 22.3 10^3/uL (4.0-10.0)
[2021-05-10] MEDS ORDERED: BOOSTRIX/ADACEL VACCINE (DIPHTH/PERTUSS/ACELL/TETANUS) 0.5ML SYR IM ONE (09:00)
[2021-05-10] MEDS: PRENATAL VITAMINS CHEWABLE TABLET PO SCH (09:00)
[2021-05-11 06:00] VITALS: BP 123/67
[2021-05-11] MEDS: PRENATAL VITAMINS CHEWABLE TABLET PO SCH (08:12)
[2021-05-11] MEDS ORDERED: ACET-683 PO (11:27)
[2021-05-11] MEDS ORDERED: IBUP80TA PO (11:27)
[2021-05-11] MEDS ORDERED: BOOSTRIX/ADACEL VACCINE (DIPHTH/PERTUSS/ACELL/TETANUS) 0.5ML SYR IM ONE (12:00)
== END 2021-05-11 15:15 | disposition home or self-care (01) | DRG 561 ==
LOC: M LDI 23:21 → M OBS 05-10 03:26
PROVIDERS: ADMIT Obstetrics & Gynecology; ATTEND Obstetrics & Gynecology
DX: Z39.0 Encounter for care and examination of mother immediately after delivery (principal)

== ENCOUNTER 2024-02-02 07:59 | Emergency (ER) | payer OTHER ==
[~2024-02-02] VITALS: Ht 167.6 cm; Wt 97.7 kg
[~2024-02-02 07:59] MED LIST changes: +ONDA-282 PO; -ONDA4TAB6 PO
[2024-02-02 10:55] VITALS: BP 116/60; TEMP 98; O2SAT 100
== END 2024-02-02 10:57 | disposition home or self-care (01) ==
LOC: M ED 07:59
DX: S93.601A Unspecified sprain of right foot, initial encounter (principal); V49.50XA Passenger injured in collision with unspecified motor vehicles in traffic accident, initial encounter; Y92.9 Unspecified place or not applicable; Y93.9 Activity, unspecified; Y99.9 Unspecified external cause status; M77.31 Calcaneal spur, right foot; F32.A Depression, unspecified